=== PATIENT | male | born 2000 | race Caucasian/White ===

== ENCOUNTER 2023-07-05 14:59 | Emergency (ER) | payer SELFPAY ==
[2023-07-05 15:01] VITALS: BP 124/69; PULSE 84; RESP 14; TEMP 36.6; O2SAT 99; BMI 21.6
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
[2023-07-05] MEDS: Oxycodone/Apap 5/325 Tablet PO (15:35)
--- NOTE | 2023-07-05 15:44 | ED.RN ---
pt concerned about integrity wrap, and that they didnt clean wound/hand before splinting, consulted with VENUS and dr Morocho, to get imaging since can not get reports from earlier today so they can address splint.
--- NOTE | 2023-07-05 15:52 | RAD_ITS ---
EXAM: XR RIGHT HAND COMPLETE, 3 OR MORE VIEWS CLINICAL INDICATION: Evaluation of fracture TECHNIQUE: Frontal, lateral and oblique views of the right hand. COMPARISON: No relevant prior studies available. FINDINGS: BONES/JOINTS: Unremarkable. No acute fracture. No subluxation. Normal alignment. Preservation of the joint space. No sclerotic or destructive changes observed. SOFT TISSUES: Soft tissue swelling around the dorsum of the hand. Slightly displaced fracture of the tuft of the fifth digit. No radiopaque foreign body. RAD/Hand Min 3 Views IMPRESSION: Soft tissue swelling around the dorsum of the hand. Slightly displaced fracture of the tuft of the fifth digit. ss Electronically Signed: Dakotah Viveros MD at 16:22 EDT ,
[2023-07-05] MEDS: Cephalexin 250 MG Capsule 500 MG PO (17:31)
[2023-07-05 17:50] VITALS: BP 124/69; PULSE 84; RESP 14; TEMP 36.6; O2SAT 99
== END 2023-07-05 17:52 | disposition home or self-care (01) ==
PROVIDERS: Emergency Provider Emergency Medicine; Visit Provider Emergency Medicine
DX: S62.636B Displaced fracture of distal phalanx of right little finger, initial encounter for open fracture (principal); V18.0XXA Pedal cycle driver injured in noncollision transport accident in nontraffic accident, initial encounter; S60.031A Contusion of right middle finger without damage to nail, initial encounter; S60.041A Contusion of right ring finger without damage to nail, initial encounter; S60.051A Contusion of right little finger without damage to nail, initial encounter
CPT/HCPCS: 73130; 99284